=== PATIENT | male | born 1965 | race Caucasian/White ===

== ENCOUNTER 2022-09-03 15:25 | Emergency (ER) | payer BC ==
[~2022-09-03] VITALS: Ht 182.9 cm; Wt 106.0 kg
[2022-09-03 15:49] LABS: BASOPHILS # (AUTO) 0.1 X10'3 (0-0.2); BASOPHILS % (AUTO) 1.3 % (0-1); EOSINOPHILS # (AUTO) 0.2 X10'3 (0-0.9); EOSINOPHILS % (AUTO) 2.4 % (0-6); HEMATOCRIT 47.9 % (42.0-52.0); LYMPHOCYTES # (AUTO) 1.7 X10'3 (1.1-4.8); LYMPHOCYTES % (AUTO) 22.6 % (21-51); MEAN CORPUSCULAR HEMOGLOBIN 30.1 PG (27.0-31.0); MEAN CORPUSCULAR HGB CONC 33.4 g/dL (33.0-36.5); MEAN CORPUSCULAR VOLUME 90.1 FL (78-98); MEAN PLATELET VOLUME 8.8 FL (7.4-10.4); MONOCYTES # (AUTO) 0.8 X10'3 (0-0.9); MONOCYTES % (AUTO) 10.3 % (2-12); NEUTROPHILS # (AUTO) 4.7 X10'3 (1.8-7.7); NEUTROPHILS % (AUTO) 63.4 % (42-75); PLATELET COUNT 278 X10'3 (140-440); RED BLOOD COUNT 5.32 X10'6 (4.70-6.10); WHITE BLOOD COUNT 7.5 X10'3 (4.5-11.0)
[2022-09-03 16:08] LABS: ALANINE AMINOTRANSFERASE 38 U/L (12-78); ALBUMIN 3.5 G/DL (3.4-5.0); ALKALINE PHOSPHATASE 62 IU/L (46-116); ANION GAP 10 (8-16); ASPARTATE AMINO TRANSFERASE 29 U/L (10-37); BILIRUBIN,TOTAL 3.1 MG/DL (0.1-1.0); BLOOD UREA NITROGEN 17 MG/DL (7-18); BUN/CREATININE RATIO 12.6 (5.4-32.0); CHLORIDE 105 MMOL/L (99-107); CREATININE 1.35 MG/DL (0.60-1.10); GLUCOSE 82 MG/DL (70-104); MAGNESIUM 2.3 MG/DL (1.5-2.4); POTASSIUM 4.1 MMOL/L (3.5-5.1); SODIUM 143 MMOL/L (135-145); TOTAL CARBON DIOXIDE 28.1 MMOL/L (24-32); eGFR 54 ML/MIN
[2022-09-03] MEDS ORDERED: furosemide 10 MG/1 ML 10ml inj IV ONE (17:35)
[2022-09-03] MEDS ORDERED: aspirin 81mg tab.chew PO ONE (17:35)
[2022-09-03] MEDS ORDERED: nitroGLYCERIN 0.4mg SUBLingual tab SL PRN (17:35)
[2022-09-03] MEDS ORDERED: iohexol 350MG/ML 100ml bottle IV ONE ×2 (17:39→17:44)
[2022-09-03] MEDS ORDERED: heparin 10,000 units/1 ML INJ IV ONE ×2 (18:45→18:51)
[2022-09-03] MEDS ORDERED: heparin 25,000 UNIT/250ml bag 250 ML IV PRN (18:55)
[2022-09-03 18:58] LABS: APTT 29 SECONDS (22-32)
--- NOTE | 2022-09-03 19:22 | NUR ---
Patient declines to start heparin at this time, states he would like to speak with provider and has not heard anything about his situation from physicians.
--- NOTE | 2022-09-03 21:10 | NUR ---
Patient resting in stretcher at this time, pending decision with cardiology. Will continue to hold heparin until decision admit/AMA is made.
[2022-09-03 21:28] VITALS: BP 147/83
== END 2022-09-03 21:56 | disposition left against medical advice (07) ==
LOC: ER 15:26
DX: I21.4 Non-ST elevation (NSTEMI) myocardial infarction (principal); I50.9 Heart failure, unspecified; Z72.89 Other problems related to lifestyle; Z79.899 Other long term (current) drug therapy
CPT/HCPCS: 36415; 71045; 71275; 80053; 83735; 83880; 84484; 85025; 85730; 93005; 96374; 99291; J1940; J3490; Q9967